=== PATIENT | female | born 1990 | race American Indian/Alaskan Native ===

== ENCOUNTER 2019-01-21 20:18 | Emergency (ER) | payer BC ==
--- NOTE | 2019-01-21 20:42 | Emergency Department Report ---
Blank Doc - Documentation Documentation: 28-year-old female that presents with allergic reaction from eating shrimp. This initial assessment/diagnostic orders/clinical plan/treatment(s) is/are subject to change based on patient's health status, clinical progression and re- assessment by fellow clinical providers in the ED. Further treatment and workup at subsequent clinical providers discretion. Patient/guardians urged not to elope from the ED as their condition may be serious if not clinically assessed and managed. Initial orders include: 1- Patient sent to [facility] for further evaluation and treatment 2- RN notified to have the patient brought back [facility] 3- normal saline, decadron, pepcid, benadryl
[2019-01-21] MEDS ORDERED: DECADRON IV ONE (20:43)
[2019-01-21] MEDS ORDERED: PEPCID IV ONE (20:43)
[2019-01-21] MEDS ORDERED: NACL 0.9% 1000 ML 1,000 ML IV ONE (20:43)
[2019-01-21] MEDS ORDERED: BENADRYL IV ONE (20:43)
[2019-01-21] MEDS ORDERED: SOLU-Medrol IV ONE (21:24)
--- NOTE | 2019-01-21 22:43 | Emergency Department Report ---
ED Allergic Reaction HPI - General Chief complaint: Allergic Reaction Stated complaint: ALLERGIC REACTION Time Seen by Provider: 01/21/19 20:41 Source: patient Mode of arrival: Ambulatory Limitations: No Limitations - History of Present Illness Initial Comments: 28-year-old female presents ED with allergic reaction after eating shrimp pasta tonight. She has known allergy to shrimp, but states she did not take Benadryl prior to eating the shrimp tonight as she usually does. Patient developed swelling to the upper left lip. States she took 2 Benadryl prior to ED arrival. Patient denies any shortness of breath, wheezing, nausea or vomiting. MD Complaint: allergic reaction -: hour(s) (1) Exposure: food Symptoms: lip swelling Severity: mild Treatment Prior to Arrival: benadryl - Related Data Previous Rx's Medication Instructions Recorded Last Taken Type predniSONE [Deltasone] 50 mg PO QDAY #5 tab 01/21/19 Unknown Rx Allergies Allergy/AdvReac Type Severity Reaction Status Date / Time shrimp Allergy Swelling Verified 01/21/19 20:32 ED Review of Systems ROS: Stated complaint: ALLERGIC REACTION Other details as noted in HPI Comment: All other systems reviewed and negative Respiratory: denies: shortness of breath, wheezing Cardiovascular: denies: chest pain Gastrointestinal: denies: nausea, vomiting Skin: denies: rash ED Past Medical Hx - Past Medical History Previous Medical History?: No - Surgical History Past Surgical History?: No - Social History Smoking Status: Never Smoker Substance Use Type: None - Medications Home Medications: Home Medications Medication Instructions Recorded Confirmed Last Taken Type predniSONE [Deltasone] 50 mg PO QDAY #5 tab 01/21/19 Unknown Rx ED Physical Exam - General Limitations: No Limitations General appearance: alert, in no apparent distress - Head Head exam: Present: atraumatic, normocephalic - Eye Eye exam: Present: normal appearance - ENT ENT exam: Present: normal orophraynx (uvula is midline normal), mucous membranes moist, other (mild swelling to the left upper lip; no tongue swelling present) - Neck Neck exam: Present: normal inspection - Respiratory Respiratory exam: Present: normal lung sounds bilaterally. Absent: respiratory distress, wheezes, stridor - Cardiovascular Cardiovascular Exam: Present: regular rate, normal rhythm - GI/Abdominal GI/Abdominal exam: Present: soft. Absent: distended, tenderness - Extremities Exam Extremities exam: Present: normal inspection - Neurological Exam Neurological exam: Present: alert, oriented X3 - Psychiatric Psychiatric exam: Present: normal affect, normal mood - Skin Skin exam: Present: warm, dry, intact, normal color. Absent: rash ED Course Vital Signs 01/21/19 01/21/19 01/21/19 20:41 21:40 22:59 Temperature 98.8 F 98.2 F 98.2 F Pulse Rate 95 H 72 87 Respiratory 16 16 16 Rate Blood Pressure 147/84 Blood Pressure 129/79 130/81 [Left] O2 Sat by Pulse 100 97 100 Oximetry ED Medical Decision Making - Medical Decision Making 28-year-old female presents to ED following allergic reaction from eating shrimp. Patient has mild swelling to the left upper lip. No progression of swelling. Tongue is normal, posterior oropharynx is normal. Vital signs are normal. Patient given Solu-Medrol and Pepcid, took Benadryl prior to ED arrival. Patient is stable, feeling much better at this time. Will discharge home. Return precautions given. - Differential Diagnosis allergic reaction Critical care attestation.: If time is entered above; I have spent that time in minutes in the direct care of this critically ill patient, excluding procedure time. ED Disposition Clinical Impression: Food allergy Disposition: [id number]-01 TO HOME OR SELFCARE Is pt being admited?: No Condition: Stable Instructions: Food Allergy (ED) Prescriptions: predniSONE [Deltasone] 50 mg PO QDAY #5 tab Referrals: PRIMARY CARE, [Primary Care Provider] - 3-5 Days Time of Disposition: 22:44
[2019-01-21 23:33] VITALS: BP 130/81
== END 2019-01-21 23:34 | disposition home or self-care (01) ==
LOC: ED 20:18
DX: T78.1XXA Other adverse food reactions, not elsewhere classified, initial encounter (principal); Z91.013 Allergy to seafood; X58.XXXA Exposure to other specified factors, initial encounter
CPT/HCPCS: 96374; 96375; 99282; J2930